=== PATIENT | female | born 1955 | race Caucasian/White ===

== ENCOUNTER → 2022-11-21 | Outpatient (CLI) | payer MEDICARE, BC | LOC: RAD 11:11 | PROVIDERS: ATTEND Emergency Medicine | DX: M79.671 Pain in right foot (principal); M17.12 Unilateral primary osteoarthritis, left knee ==

== ENCOUNTER → 2022-12-12 | Outpatient (CLI) | payer MEDICARE, BC | LOC: RAD 12:31 | PROVIDERS: ATTEND Emergency Medicine | DX: M25.512 Pain in left shoulder (principal) ==